=== PATIENT | male | born 1955 | race Caucasian/White ===

== ENCOUNTER 2020-01-19 11:56 | Emergency (ER) | payer MEDICAID, SELFPAY ==
[~2020-01-19] VITALS: Ht 170.2 cm; Wt 85.0 kg
--- NOTE | 2020-01-19 12:13 | NUR ---
BREAK RN: THIS PATIENT BIB EMS FOR INTERMITTENT DIZZY, LIGHT HEAD X 2 HRS. PATIENT DENIES CP, SOB AND HEADACHE. PATIENT HAS A HX OF HTN WITH NON COMPLIANCE WITH MEDICATION SINCE MAY. D/T HE 'RAN OUT' AND HASN'T REFILLED. PATIENT AOX4, SLIGHTLY HTN IN THE ED. PATIENT ARRIVE WITH 18 RFA PATIENT AND INTACT. PATIENT ON CONTINUOUS MONTIORING. WAITING FOR ED MD TO ASSESS
--- NOTE | 2020-01-19 12:30 | NUR ---
REPORT RECIVED, ASSUMED CARE
[2020-01-19 12:45] LABS: BASOPHILS % (AUTO) 1 % (0-1); EOSINOPHILS % (AUTO) 1 % (1-7); LYMPHOCYTES % (AUTO) 18 % (22-44); MEAN CORPUSCULAR HGB CONC 33.3 g/dL (33.2-36.2); MEAN PLATELET VOLUME 6.9 fL (7.4-10.4); MONOCYTES % (AUTO) 6 % (2-9); NEUTROPHILS % (AUTO) 75 % (42-75); PLATELET COUNT 241 x10^3/uL (130-400); RED BLOOD COUNT 4.65 x10^6/uL (4.38-5.82); RED CELL DISTRIBUTION WIDTH 14.3 % (9.4-14.8)
[2020-01-19 12:48] LABS: MD NO
[2020-01-19 12:54] LABS: ALANINE AMINOTRANSFERASE 17 U/L (12-78); ALBUMIN 3.8 g/dL (3.4-5.0); ANION GAP 4 mmol/L (5-15); CALCIUM 8.8 mg/dL (8.5-10.1); CHLORIDE 110 mmol/L (98-107); CREATININE 0.98 mg/dL (0.7-1.3)
[2020-01-19 12:56] VITALS: BP 192/99
[2020-01-19 12:56] LABS: SALICYLATE LEVEL < 1.7 mg/dL (2.8-20.0)
[2020-01-19 12:58] LABS: ALKALINE PHOSPHATASE 71 U/L (45-117); BILIRUBIN,TOTAL 0.5 mg/dL (0.2-1.0); TOTAL PROTEIN 6.8 g/dL (6.4-8.2)
--- NOTE | 2020-01-19 12:59 | NUR ---
PT A&O 4, NO DISTRESS
[2020-01-19] MEDS ORDERED: LISINOPRIL 10 MG TABLET PO ONE (15:00)
[2020-01-19 15:19] LABS: AMPHETAMINE SCREEN, URINE Positive (Negative); BARBITURATE SCREEN, URINE Negative (Negative); BENZODIAZEPINE SCREEN, URINE Negative (Negative); CANNABINOID SCREEN, URINE Negative (Negative); COCAINE SCREEN, URINE Negative (Negative); METHADONE SCREEN, URINE Negative (Negative); OPIATE SCREEN, URINE Negative (Negative)
[2020-01-19] MEDS ORDERED: LISINOPRIL 10 MG TABLET ONE (15:37)
== END 2020-01-19 16:29 | disposition home or self-care (01) ==
LOC: ED 14:01
DX: R42 Dizziness and giddiness (principal); F15.10 Other stimulant abuse, uncomplicated; I10 Essential (primary) hypertension; F17.200 Nicotine dependence, unspecified, uncomplicated; Z72.9 Problem related to lifestyle, unspecified; Z91.14 Patient's other noncompliance with medication regimen
CPT/HCPCS: 36415; 70450; 80053; 80307; 83735; 85025; 93005; 99285